=== PATIENT | female | born 1960 | race Caucasian/White ===

== ENCOUNTER 2019-07-14 09:00 | Outpatient (CLI) | payer OTHER ==
--- NOTE | 2019-07-14 14:38 | XRAY Report ---
Reason: PAIN IN LT KNEE Procedure Date: 07/14/2019 Accession Number: [id number] / [id number] Procedure: XR - Knee 3 View LT CPT Code: Final Report FULL RESULT: EXAM: LEFT KNEE RADIOGRAPHY EXAM DATE: 07/14/2019 09:08 AM. CLINICAL HISTORY: Pain in left knee. COMPARISON: None. TECHNIQUE: 3 views. FINDINGS: Bones: Normal. No fractures or bone lesions. Joints: Normal. No effusion. No subluxations. Soft Tissues: Normal. No soft tissue swelling. IMPRESSION: No fracture or dislocation and no significant degenerative changes. RADIA
== END 2019-07-14 09:01 | disposition home or self-care (01) ==
LOC: DI 09:00
PROVIDERS: ATTEND Physician Assistant
DX: M25.562 Pain in left knee (principal)

== ENCOUNTER 2020-05-18 22:07 | Emergency (ER) | payer OTHER ==
[2020-05-18 22:15] VITALS: BP 133/93
[2020-05-18] MEDS ORDERED: FAMOTIDINE 20 MG TABLET PO STA (22:23)
[2020-05-18] MEDS ORDERED: predniSONE 20 MG TABLET PO STA (22:23)
--- NOTE | 2020-05-18 22:25 | ED Physician Documentation ---
History of Present Illness - Stated complaint Stated Complaint: INSECT BITE - Chief complaint Chief Complaint: Wound - Additonal information Additional information: 59-year-old female presents to the emergency department for evaluation of left middle finger swelling and pruritus. She reports that yesterday afternoon at around 3 PM [place] sting her. Since then she is progressed developed progressive swelling and mild erythema of the finger. There is also small vesicles forming on the medial side. Erythema has progressed to the dorsum of the hand. There is no induration but she reports that it is very pruritic. She did take 2 Benadryl today without relief. She has no history of diabetes or hypertension. Takes no routinely prescribed medications. She has no history of anaphylaxis to insect bites and denies chest pain or shortness of breath Review of Systems Constitutional: reports: Reviewed and negative Ears: reports: Reviewed and negative Nose: reports: Reviewed and negative Throat: reports: Reviewed and negative Cardiac: reports: Reviewed and negative Respiratory: reports: Reviewed and negative GI: reports: Reviewed and negative : reports: Reviewed and negative Skin: reports: Bite / sting (left middle finger) Musculoskeletal: reports: Extremity swelling (left middle finger) Psychiatric: reports: Reviewed and negative PD PAST MEDICAL HISTORY - Present Medications Home Medications: Ambulatory Orders Medication Instructions Recorded Confirmed Cephalexin [Keflex] 500 mg PO TID #21 capsule 05/18/20 Famotidine [Pepcid] 20 mg PO BID #10 tablet 05/18/20 predniSONE [Prednisone] 40 mg PO DAILY #10 tablet 05/18/20 - Allergies Allergies/Adverse Reactions: Allergies Allergy/AdvReac Type Severity Reaction Status Date / Time amoxicillin Allergy Rash Verified 05/18/20 22:15 PD ED PE EXPANDED - General General: Alert, No acute distress, Well developed/nourished - Neck Neck: Supple w/out meningeal sx. No: Adenopathy - Cardiac Cardiac: Regular Rate, Regular Rhythm, Radial strong equal, Cap refill < 2 sec - Respiratory Respiratory: Clear to ausultation michael. No: Distress - Extremities Extremities: Left finger(s) (Left middle finger grossly swollen and mildly erythematous from distal tip to dorsum of hand. Mild erythema but no induration. Small vesicles appear to be forming on the medial or radial side of the middle finger. No drainage. Limited flexion and extension secondary to swelling. No pain elicited) Results - Vitals Vitals: Vital Signs - 24 hr 05/18/20 22:10 Temperature 36.9 C Heart Rate 71 Respiratory 16 Rate Blood Pressure 133/93 H O2 Saturation 100 Oxygen O2 Source Room air PD MEDICAL DECISION MAKING - ED course Complexity details: considered differential, d/w patient, d/w family ED course: 59-year-old female presents to the emergency department for evaluation of left middle finger swelling that developed yesterday afternoon when [place]. She has no evidence of anaphylaxis or airway compromise. The left middle finger is grossly swollen and mildly erythematous. The swelling does extend to the dorsum of the hand. She will be given a 5-day course of prednisone to assist with the inflammation. I will also recommend 3 to 4 days of Benadryl and Pepcid as a histamine response. There is mild erythema but no lymphangitis or fevers. My suspicion for infection is low. However I will write a prescription for Keflex that she is to fill in 48 hours if symptoms not markedly improving. Departure - Departure Disposition: 01 Home, Self Care Clinical Impression: Sting, Swelling of left middle finger Condition: Stable Record reviewed to determine appropriate education?: Yes Prescriptions: Cephalexin [Keflex] 500 mg PO TID #21 capsule Famotidine [Pepcid] 20 mg PO BID #10 tablet predniSONE [Prednisone] 40 mg PO DAILY #10 tablet Comments: Romi the swelling of your left middle finger is most consistent with a sting from some unknown insect. To help with the swelling and itching I have started you on a course of prednisone. Your first dose was given to you this evening in the emergency department. Tomorrow please fill the remaining prednisone and begin taking tomorrow evening. I would also like you to take Pepcid 20 mg twice a day for for 5 days as well as Benadryl 50 mg twice a day for 4 or 5 days. These 3 medications in combination should help with the swelling and itching. However if you are having worsening swelling, any fevers or increased redness of the finger that may be a sign that an early infection is developing. If that does occur then please fill the prescription for the cephalexin and begin taking. Return sooner to the emergency department for any other emergent concerns including infection, shortness of breath or chest pain
== END 2020-05-18 22:38 | disposition home or self-care (01) ==
LOC: ED 22:07
DX: S60.562A Insect bite (nonvenomous) of left hand, initial encounter (principal); W57.XXXA Bitten or stung by nonvenomous insect and other nonvenomous arthropods, initial encounter; Y92.832 Beach as the place of occurrence of the external cause
CPT/HCPCS: 99283; 99284; A9270; J7512